=== PATIENT | male | born 1965 ===

== ENCOUNTER 2023-02-16 17:46 | Emergency (ER) | payer BC ==
[2023-02-16] MEDS ORDERED: Succinylcholine 200 MG/10 ML MDV IV STA (17:50)
[2023-02-16] MEDS ORDERED: Midazolam 1 MG/ML 2 ML SDV IVPUSH ONE (18:00)
[2023-02-16] MEDS ORDERED: Etomidate 2 MG/ML 10 ML SDV ONE (18:00)
[2023-02-16] MEDS ORDERED: Rocuronium 50 MG/5 ML Vial IVPUSH ONE (18:01)
[2023-02-16] MEDS ORDERED: fentaNYL 100 MCG/2 ML SDV IVPUSH ONE (18:01)
[2023-02-16] MEDS ORDERED: Naloxone 0.4 MG/ML SDV IVPUSH PRN (18:01)
[2023-02-16] MEDS ORDERED: Midazolam 1 MG/ML 5 ML SDV ONE (18:04)
[2023-02-16] MEDS ORDERED: levETIRAcetam in NaCl (iso-os) 1,000 MG in Premix Bag 1 BAG IV ONE ×2 (18:07)
[2023-02-16] MEDS ORDERED: Sodium Chloride 0.9% 10 ML Syringe FLUSH PRN (18:08)
[2023-02-16 18:13] LABS: BASOPHILS ABSOLUTE AUTO 0.07 K/uL (0.00-0.10); BASOPHILS PERCENT AUTO 0.8 % (0.1-1.3); EOSINOPHILS ABSOLUTE AUTO 0.08 K/uL (0.00-0.40); EOSINOPHILS PERCENT AUTO 0.9 % (0.0-5.4); HEMATOCRIT 40.4 % (38.4-49.7); HEMOGLOBIN 14.1 g/dL (12.9-16.9); IMMATURE GRAN ABSOLUTE AUTO 0.11 K/uL (0.00-0.23); IMMATURE GRAN PERCENT AUTO 1.2 % (0.0-0.7); LYMPHOCYTES ABSOLUTE AUTO 2.21 K/uL (0.8-3.3); LYMPHOCYTES PERCENT AUTO 24.3 % (11.4-47.7); MEAN CORPUSCULAR HEMOGLOBIN 32.6 pg (31.6-35.5); MEAN CORPUSCULAR HGB CONC 34.9 g/dL (31.6-35.5); MEAN CORPUSCULAR VOLUME 93.5 fL (81.4-99.0); MONOCYTES PERCENT AUTO 9.9 % (3.3-12.6); NEUTROPHILS ABSOLUTE AUTO 5.71 K/uL (1.0-7.6); NEUTROPHILS PERCENT AUTO 62.9 % (40.0-78.1); PLATELET COUNT,PLT 159 K/uL (130-375); RED BLOOD CELL COUNT 4.32 M/uL (4.14-5.76); WHITE BLOOD CELL COUNT,WBC 9.1 K/uL (3.2-11.0)
[2023-02-16 18:14] LABS: BASE EXCESS VENOUS -4.8 mm/L; BICARBONATE,VENOUS 20.1 mmol/L; CARBOXYHEMOGLOBIN 1.9 % (0.0-1.6); METHEMOGLOBIN 0.9 %; O2 SATURATION VENOUS 70.9; OXYHEMOGLOBIN 68.9 %; PCO2 VENOUS 38.5 mm/Hg; PH,VENOUS 7.337 (7.350-7.450); PO2 VENOUS 41.8 mm/Hg; TOTAL HEMOGLOBIN 14.7 g/dL (13.5-18.0)
[2023-02-16] MEDS ORDERED: Midazolam 50 MG in Premix Bag 1 BAG IV SCH (18:15)
[2023-02-16 18:16] LABS: A/G RATIO 1.4 (1.2-2.2); ALANINE AMINOTRANSFERASE,ALT 75 U/L (12-78); ALBUMIN 3.6 g/dL (3.4-5.0); ALKALINE PHOSPHATASE 78 U/L (46-116); ANION GAP 17.9 mmol/L (5.0-14.0); ASPARTATE AMNIOTRANSFERASE,AST 52 U/L (15-37); BILIRUBIN TOTAL 0.5 mg/dL (0.2-1.0); BLOOD UREA NITROGEN,BUN 17 mg/dL (7-18); CALCIUM 8.1 mg/dL (8.5-10.1); CARBON DIOXIDE,CO2 20 mmol/L (21-32); CHLORIDE,CL 106 mmol/L (100-108); CREATININE 1.2 mg/dL (0.8-1.3); ESTIMATED GFR 71 mL/min (>60); GLUCOSE RANDOM 155 mg/dL (74-106); POTASSIUM,K 3.9 mmol/L (3.6-5.2); PROTEIN TOTAL,TP 6.1 g/dL (6.4-8.2); SODIUM,NA 140 mmol/L (140-148)
[2023-02-16 18:19] LABS: APPEARANCE,URINE CLEAR (CLEAR); BILIRUBIN,URINE NEGATIVE (NEGATIVE); COLOR,URINE YELLOW (YELLOW); GLUCOSE,URINE 500 mg/dL (NEGATIVE); KETONES,URINE TRACE mg/dL (NEGATIVE); LEUKOCYTE ESTERASE,URINE NEGATIVE (NEGATIVE); NITRITE,URINE NEGATIVE (NEGATIVE); OCCULT BLOOD,URINE NEGATIVE (NEGATIVE); PROTEIN,URINE NEGATIVE (NEGATIVE); UROBILINOGEN,URINE 0.2 EU/dL (0.2-1.0)
[2023-02-16 18:27] LABS: BASE EXCESS ARTERIAL -4.5 mm/L; BICARBONATE,ARTERIAL 19.6 mmol/L (22.0-26.0); CARBOXYHEMOGLOBIN 1.5 % (0.0-1.6); METHEMOGLOBIN 0.9 %; O2 SATURATION ARTERIAL 98.5 % (95.0-98.0); OXYHEMOGLOBIN 96.1 %; PCO2 ARTERIAL 35.2 mmHg (35.0-42.0); TOTAL HEMOGLOBIN 14.4 g/dL (13.5-18.0)
[2023-02-16 18:28] LABS: AMORPHOUS SEDIMENT,URINE NOT SEEN; BACTERIA,URINE FEW; EPITHELIAL CELLS,URINE NOT SEEN; MUCUS,URINE NOT SEEN; RBC,URINE 0-5 (0-5); WBC,URINE 0-5 (0-5)
[2023-02-16 18:34] LABS: INR 1.1; PROTHROMBIN TIME 10.9 sec (9.2-10.6)
[2023-02-16] MEDS ORDERED: ceFAZolin 2 GM in Sodium Chloride 0.9% 50 ML IV ONE (18:50)
[2023-02-16] MEDS ORDERED: Diphtheria,Pertussis(Acell),Tetanus Vaccine 0.5 ML Syringe IM ONE (18:50)
[2023-02-16] MEDS ORDERED: Sodium Chloride 0.9% 1,000 ML IV SCH (19:00)
== END 2023-02-16 19:55 ==
LOC: JP.ED 17:46
DX: S02.0XXA Fracture of vault of skull, initial encounter for closed fracture (principal); S02.85XA Fracture of orbit, unspecified, initial encounter for closed fracture; S02.2XXA Fracture of nasal bones, initial encounter for closed fracture; S06.6X1A Traumatic subarachnoid hemorrhage with loss of consciousness of 30 minutes or less, initial encounter; S02.40CA Maxillary fracture, right side, initial encounter for closed fracture; S12.201A Unspecified nondisplaced fracture of third cervical vertebra, initial encounter for closed fracture; W20.8XXA Other cause of strike by thrown, projected or falling object, initial encounter
CPT/HCPCS: 12002; 31500; 36415; 36600; 51702; 70450; 70450-26; 70486; 70486-26; 71045; 71045-26; 72125; 72125-26; 76377; 80053; 81001; 82803; 83605; 85025; 85610; 86850; 86900; 86901; 90471; 90715; 96365; 96367; 99285-25; J0690; J1953; J2250; J3010; J3490; J7030